=== PATIENT | female | born 1985 | race Caucasian/White ===

== ENCOUNTER 2022-12-15 07:03 | Outpatient (CLI) | payer OTHER, BC, SELFPAY ==
--- NOTE | 2022-12-15 07:15 | MR_ITS ---
[address] [address] Phone:?[phone] Fax:?[phone] Referring Physician Information: Lazaro May M.D. [id number] [facility] [address] Phone:?[phone] Fax:?[phone] Patient:?Evangelina Hallman D.O.B:?1985 Sex:?Female Phone:?[phone] [facility] MRN:?[id number] Exam Date:?12/15/2022 ? EXAM: MRI of the RIGHT KNEE, without contrast CLINICAL INFORMATION: Female, 37 years old, with right knee injury after fall, pain along the inside of the knee cap in the proximal. INDICATION: Evaluate for MCL sprain PRIOR SURGERY: None reported. PLAIN FILMS: Knee radiographs 11/12/2022. COMPARISONS: No prior MRIs available. TECHNICAL INFORMATION: Using a 1.5T MR scanner and a localizing surface coil: sagittals: PD, PDFS coronals: PD, STIR axials: PD, PDFS SEDATION: None CONTRAST: None FINDINGS: Knee joint: Effusion: Trace right knee effusion. Popliteal cyst: None. Loose bodies: None. Subcutaneous and extra-articular soft tissues: Mild prepatellar subcutaneous soft tissue edema Ligaments: ACL: Intact ACL anteromedial and posterolateral bundles, without sprain or tear. PCL: Intact PCL, without acute or chronic injury. MCL: Intact MCL superficial and deep layers, without injury. LCL: Intact LCL, without injury. Posterolateral corner: Minimal intramuscular edema/inflammation in the lateral gastrocnemius near the fibular tip (axial series 4 image 23-24). Popliteus, biceps femoris, iliotibial band, and popliteofibular ligament are intact. Posteromedial corner: No posteromedial corner soft tissue injury. Semimembranosus, pes anserine tendons and posterior oblique ligament are without injury, tendinopathy or bursitis. Extensor mechanism: Patellar tendon: Intact, without tendinopathy. Quadriceps tendon: Intact, without tendinopathy. Retinacula: Medial and lateral retinacula are intact. Fat pads: Unremarkable infrapatellar Hoffa's, quadriceps and prefemoral fat pads. Medial compartment: Medial meniscus: No articular surface, meniscosynovial junction or root tear. No displacement, extrusion or parameniscal cyst. Medial femoral condyle: No chondromalacia or osteochondral abnormality. Medial tibial plateau: No chondromalacia or osteochondral abnormality. Lateral compartment: Lateral meniscus: No articular surface, meniscosynovial junction or root tear. No displacement, extrusion or parameniscal cyst. Lateral femoral condyle: No chondromalacia or osteochondral abnormality. Lateral tibial plateau: No chondromalacia or osteochondral abnormality. Patellofemoral joint: Patella: Focal fissuring along the mid central median ridge of the patella with mild underlying marrow edema (axial series 4 images sagittal series 6 image 17). Trochlea: No chondromalacia or osteochondral abnormality. Proximal tibiofibular joint: Unremarkable, without evidence of ligament sprain injury, joint effusion or adjacent marrow edema. Bones: Small nondisplaced fracture along the fibular tip (sagittal series 5 image 8, and coronal series 8 image 26). Moderate associated marrow edema. Additional prominent appearance of marrow edema peripheral lateral femoral condyle with mild depression (axial series 4 image 14, and sagittal series 5 & 6 images 11-10). IMPRESSION: 1. Small region of mild depression fracturing the peripheral lateral femoral condyle with associated moderate marrow edema. 2. Small nondisplaced fracture of the fibular styloid with mild marrow edema. 3. Minimal strain of the lateral gastrocnemius muscle in the region of the aforementioned fibular styloid fracture. Posterolateral corner soft tissue structures are otherwise intact. 4. Focal fissure in the mid central median ridge of the patella with mild underlying marrow edema. Cartilage surfaces are otherwise intact. 5. No cruciate or collateral ligament sprain/tear. 6. Trace knee joint effusion. KME Electronically signed on 12/15/2022 5:00:00 PM by Zenaida Daina M.D.
== END 2022-12-15 07:04 | disposition home or self-care (01) ==
PROVIDERS: PCP Family Medicine; Visit Provider Orthopaedic Surgery Sports Medicine
DX: M25.561 Pain in right knee (principal); S83.411A Sprain of medial collateral ligament of right knee, initial encounter; S72.421A Displaced fracture of lateral condyle of right femur, initial encounter for closed fracture; M25.461 Effusion, right knee
CPT/HCPCS: 73721